=== PATIENT | female | born 2000 | race African-American/Black ===

== ENCOUNTER 2021-08-26 10:54 | Emergency (ER) | payer MEDICAID ==
[~2021-08-26] VITALS: Ht 160 cm; Wt 60.0 kg
[2021-08-26 11:06] VITALS: BP 109/85
[2021-08-26] MEDS ORDERED: KETOROLAC 60MG/2ML VIAL IM ONE (14:00)
[2021-08-26] MEDS ORDERED: IBUP-2029 MT (14:17)
[2021-08-26] MEDS ORDERED: ALBU6.7H9 INH (14:17)
[2021-08-26] MEDS ORDERED: IBUPROFEN 600MG TABLET PO ONE (14:30)
== END 2021-08-26 14:52 | disposition home or self-care (01) ==
LOC: ER 10:54
DX: S39.012A Strain of muscle, fascia and tendon of lower back, initial encounter (principal); Z76.0 Encounter for issue of repeat prescription; F12.10 Cannabis abuse, uncomplicated; F17.210 Nicotine dependence, cigarettes, uncomplicated; X58.XXXA Exposure to other specified factors, initial encounter; Y93.89 Activity, other specified; Y92.018 Other place in single-family (private) house as the place of occurrence of the external cause
CPT/HCPCS: 81025; 99283